=== PATIENT | male | born 1970 | race Two or more races ===

== ENCOUNTER 2019-02-08 14:22 | Outpatient (CLI) | payer BC ==
--- NOTE | 2019-02-08 14:50 | RAD ---
CERVICAL SPINE 3 VIEWS: Date: 02/08/19 HISTORY: Flexion and extension imaging, history of neck surgery, pain. FINDINGS: There is mild degenerative change at the atlantoaxial interspace. There is disc space narrowing with degenerative end plate change and anterior osteophyte formation at C6-7. There is mild C5-6 disc spac e narrowing as well. The C7-T1 level is not optimally assessed on this exam. There is mild anterolist hesis at C4-5 measuring 3.0 mm on flexion and neutral imaging. On extension imaging, this anterolisth esis is no longer visualized. No prevertebral soft tissue swelling. IMPRESSION: Degenerative disc disease at C6-7, and to a lesser degree, C5-6. Mild anterolisthesis at C4-5 on neut ral and flexion imaging. POS: MAG
== END 2019-02-08 14:23 | disposition home or self-care (01) ==
LOC: TBSIIMAG 14:22
PROVIDERS: ATTEND Neurological Surgery
DX: M50.122 Cervical disc disorder at C5-C6 level with radiculopathy (principal); M43.12 Spondylolisthesis, cervical region
CPT/HCPCS: 72040

== ENCOUNTER 2020-02-06 05:44 | Outpatient (CLI) | payer BC, OTHER ==
[2020-02-06 18:02] LABS: Hemoglobin 13.9 g/dL (14.0-18.0); Mean Corpuscular HGB CONC 34.5 g/dL (32.0-36.0); Mean Corpuscular Hemoglobin 31.5 pg (27.0-31.0); Mean Corpuscular Volume 91.4 fL (78.0-98.0); Mean Platelet Volume 8.7 fL (7.4-10.4); Platelet Count 256 thou/uL (130-400); RBC Distribution Width 11.5 % (11.5-14.5); Red Blood Cell (RBC) Count 4.42 mill/uL (4.70-6.10); White Blood Cell (WBC) Count 5.5 thou/uL (4.8-10.8)
[2020-02-07 13:48] LABS: SARS-CoV-2 MS2 Positive; SARS-CoV-2 N Gene Negative; SARS-CoV-2 S Gene Negative; SARS-CoV-2 orf1ab Negative
== END 2020-02-06 05:45 | disposition home or self-care (01) ==
LOC: LABBT 05:44
PROVIDERS: ATTEND Neurological Surgery
DX: Z01.818 Encounter for other preprocedural examination (principal); Z11.59 Encounter for screening for other viral diseases; M48.2 Kissing spine
CPT/HCPCS: 85027; 87635; U0003

== ENCOUNTER 2020-02-09 07:08 | Day surgery (SDC) | payer BC ==
[2020-02-03 11:19] VITALS: BMI 32.5
--- NOTE | 2020-02-06 18:04 | HP ---
ANTICIPATED DATE OF SURGERY: 02/09/2020. PROCEDURE PERFORMED: Removal of inferior T6 and superior T7 spinous process. HISTORY OF PRESENT ILLNESS: Mr. Lazcano is a 49-year-old male with a chief complaint of mid back pain for years. In the past, he has had multilevel laminoforaminotomy in the C-spine, which did not help. MRI was done and noticed kissing spine at T6 and T7 where his spinous process were rubbing. He has had injections that have helped a little bit, but are not helping anymore. He is wondering if surgery could primarily help his pain. MEDICAL HISTORY: Anxiety, arthritis, asthma, allergies seasonal, high cholesterol, chronic pain, depression, headaches, neck surgery 4 to 5 years ago, hospitalizations in February 2016 for neck surgery. FAMILY HISTORY: Father alive with hypertension. Mother alive with hypertension. Children are alive. SOCIAL HISTORY: Former smoker. Alcohol occasional. MEDICATIONS: 1. Fentanyl. 2. Gabapentin. 3. Ranitidine 4. Baclofen. 5. Buspirone 6. Clonidine. 7. Lisinopril. 8. Hydrocodone-Acetaminophen ALLERGIES: BENADRYL AND CODEINE. REVIEW OF SYSTEMS: CONSTITUTIONAL: Denies fevers or chills. ENT: Denies change in vision or hearing. CARDIAC: Denies chest pain, shortness of breath, or diaphoresis. PULMONARY: Denies shortness of breath, cough, or hemoptysis. GI: Denies fecal incontinence, abdominal pain, nausea, vomiting, diarrhea, change in stool formation, or inconsistency. : Denies urinary incontinence, trouble with urination, frequency of urination , or bloody urine. SKIN: Denies skin rash, bruising, bleeding, or skin masses. MUSCULOSKELETAL: As per history of present illness. NEUROLOGIC: As per history of present illness. PSYCHOLOGIC: Denies anxiety, depression, or behavior changes. PHYSICAL EXAMINATION: VITAL SIGNS: Weight 220, height 6 feet. HEENT: Pupils are equal. Extraocular movements are intact. NECK: Normal. Soft and supple. No masses are noted. Range of motion is intact and nonpainful. NEUROLOGIC: Awake, alert, and oriented x3. Memory, attention, fund of knowledge, and language are normal. Cranial nerves normal. Grossly intact. Gait and station are normal. Motor exam, no weakness. Sensory exam, no numbness. IMAGING: MRI, Baastrup sign/kissing spine. PLAN: 1. Removal of the inferior T6 and superior T7 spinous process. 2. Preop testing: CBC, PT/PTT, COVID-19. 3. Anesthesia clearance INFORMED CONSENT: We discussed the indications, risks, benefits, alternatives, and expected results from surgery. The risks discussed included, but were not limited to, bleeding, infection, CSF leak, nerve damage, weakness, incontinence, chronic wound injury, arachnoiditis, paralysis, ventilator dependency, wheelchair dependency, loss of vision, cardiopulmonary complications of anesthesia, or . Long-term complications discussed included, but were not limited to spinal instability and future surgery. He understands the risks and is willing to proceed. Job ID: [id number] [facility]
[2020-02-09] MEDS ORDERED: EPINEPHrine 1 MG/ML AMP ONE (10:16)
[2020-02-09] MEDS ORDERED: Thrombin 5000 UNITS/5 ML VIAL ONE (10:16)
[2020-02-09] MEDS ORDERED: Bupivacaine PF 0.5% 30 ML VIAL ONE (10:16)
[2020-02-09] MEDS ORDERED: Glycopyrrolate 0.2 MG/ML 5 ML SYRINGE ONE (11:01)
[2020-02-09] MEDS ORDERED: Lidocaine 1% PF 5 ML VIAL ONE (11:01)
[2020-02-09] MEDS ORDERED: Dexamethasone 20 MG/5 ML VIAL ONE (11:01)
[2020-02-09] MEDS ORDERED: PROPOFOL 200 MG/20 ML VIAL ONE (11:01)
[2020-02-09] MEDS ORDERED: Ketorolac Tromethamine 30 MG/ML VIAL ONE (11:01)
[2020-02-09] MEDS ORDERED: Ondansetron PF 4 MG/2 ML Vial ONE (11:01)
[2020-02-09] MEDS ORDERED: Rocuronium Bromide 10 MG/ML (10ML VIAL) ONE (11:01)
[2020-02-09] MEDS ORDERED: Fentanyl 100 MCG/2 ML VIAL ONE ×5 (11:10→14:54)
[2020-02-09] MEDS ORDERED: Midazolam HCl 2 mg/2 ml Vial ONE (11:16)
[2020-02-09] MEDS ORDERED: Acetaminophen 325 MG TAB PO PRN (13:26)
[2020-02-09] MEDS ORDERED: Promethazine 25 MG TAB PO PRN (13:26)
[2020-02-09] MEDS ORDERED: Tamsulosin HCl 0.4 MG CAP PO PRN (13:26)
[2020-02-09] MEDS ORDERED: Scopolamine 1.5 mg/72 hour Patch TD PRN (13:26)
[2020-02-09] MEDS ORDERED: Milk Of Magnesia 30 ML UDCUP PO PRN (13:26)
[2020-02-09] MEDS ORDERED: Mag-Al 1200 mg/1200 mg/30 ML UDCUP PO PRN (13:26)
[2020-02-09] MEDS ORDERED: Ondansetron PF 4 MG/2 ML Vial IVP PRN (13:26)
[2020-02-09] MEDS ORDERED: tiZANidine HCl 4 MG TAB PO PRN (13:26)
[2020-02-09] MEDS ORDERED: Sodium Chloride 0.9% 1,000 ML IV SCH (13:30)
[2020-02-09] MEDS ORDERED: Fentanyl 100 MCG/2 ML VIAL SLOW IVP PRN ×2 (13:32)
[2020-02-09] MEDS ORDERED: HYDROcodone/Acetaminophen 5/325 mg Tablet ONE (15:30)
[2020-02-09] MEDS ORDERED: CEFAZOLIN 2 GM in Premix Bag 1 BAG IVPB SCH (16:00)
--- NOTE | 2020-02-09 18:57 | OP ---
DATE OF PROCEDURE: 02/09/2020 CHRONIC CARE NURSE: Bernard Merchant PA-C PREOPERATIVE INDICATION: Treat pain. 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 OPERATIVE PROCEDURE: Removal of T6 and T7 spinous processes (removal of posterior spinal element, thoracic spine, two levels). PREOPERATIVE MEDICATION: Ancef 2 g IV. DRAIN NUMBER: Zero. DRAIN TYPE: None. DESCRIPTION OF PROCEDURE: The patient was brought to the operating room. General endotracheal anesthesia was induced. The patient was carefully positioned on the Tiburcio frame with the appropriate padding for the chest and hips. Using a series of lateral and AP fluoro radiographs, we counted from the sacrum up to T6-7 and down from the occiput to T6-7 four separate times and arrived with the same marking pattern. We planned incision over the T6 and T7 spinous processes. The thoracic skin was sterilely prepped and draped. We opened our incision with a 10 blade knife and we controlled bleeding with bipolar and monopolar cautery. We used monopolar cautery to dissect to the thoracodorsal fascia, which was incised in the midline and reflected off the spinous process of T6 and T7. A self-retaining retractor was placed. A lateral fluoro radiograph confirmed the levels upon which we were operating. We removed the T6 and T7 spinous processes. We ensured that the remaining inferior half of the spinous process did not touch whatsoever. We ensured that there was space above and below and that the pain generator had been removed. We infused local anesthetic in the paraspinal muscles. We waxed the bone edges. We closed the wound in anatomical layers. We applied a sterile dressing. This was a clean case, no contamination. Job ID: [id number]
[2020-02-09] MEDS ORDERED: busPIRone HCl 10 MG TAB PO SCH (21:00)
[2020-02-09] MEDS ORDERED: Amlodipine 10 MG TAB PO SCH (21:00)
[2020-02-09] MEDS ORDERED: Gabapentin 300 MG CAP PO SCH (21:00)
[2020-02-10] MEDS ORDERED: Losartan 25 MG TAB PO SCH (09:00)
== END 2020-02-09 16:55 | disposition home or self-care (01) ==
LOC: SDC 07:08
PROVIDERS: ATTEND Neurological Surgery
PROC: 0PB40ZZ Excision of Thoracic Vertebra, Open Approach (ICD-10-PCS; principal; 2020-02-09)
DX: M48.2 Kissing spine (principal); I10 Essential (primary) hypertension; E78.5 Hyperlipidemia, unspecified; J45.909 Unspecified asthma, uncomplicated; G47.30 Sleep apnea, unspecified; F32.9 Major depressive disorder, single episode, unspecified; F41.9 Anxiety disorder, unspecified; E78.00 Pure hypercholesterolemia, unspecified; G89.29 Other chronic pain; M19.90 Unspecified osteoarthritis, unspecified site; Z86.14 Personal history of Methicillin resistant Staphylococcus aureus infection; Z86.73 Personal history of transient ischemic attack (TIA), and cerebral infarction without residual deficits; Z87.891 Personal history of nicotine dependence; Z79.899 Other long term (current) drug therapy; Z88.5 Allergy status to narcotic agent; Z88.8 Allergy status to other drugs, medicaments and biological substances; Z98.890 Other specified postprocedural states
CPT/HCPCS: 36416; 76000; J0171; J0690; J1100; J1885; J2001; J2250; J2405; J2704; J3010; J3370; J3490; S0020

== ENCOUNTER 2021-12-25 12:24 | Outpatient (CLI) | payer BC ==
[2021-12-25 14:22] LABS: Hemoglobin 13.8 g/dL (13.5-17.5); Mean Corpuscular HGB CONC 34.2 g/dL (32.0-36.0); Mean Corpuscular Hemoglobin 31.1 pg (27.0-33.0); Mean Platelet Volume 11.8 fl (7.4-10.4); Platelet Count 274 10x3/uL (150-450); RBC Distribution Width 12.7 % (11.5-14.5); Red Blood Cell (RBC) Count 4.44 10x6/uL (4.32-5.72); White Blood Cell (WBC) Count 5.9 10x3/uL (3.5-10.5)
[2021-12-25 14:54] LABS: PTT 26.2 sec (22.0-33.0); Prothrombin Time 10.9 sec (9.5-12.1)
[2021-12-26 08:32] LABS: SARS-CoV-2 PCR by NAA Not Detected (NotDetected)
== END 2021-12-25 12:25 | disposition home or self-care (01) ==
LOC: LABBT 12:24
PROVIDERS: ATTEND Neurological Surgery
DX: Z01.812 Encounter for preprocedural laboratory examination (principal); M50.321 Other cervical disc degeneration at C4-C5 level; Z20.822 Contact with and (suspected) exposure to COVID-19
CPT/HCPCS: 85027; 85610; 85730; U0003; U0005

== ENCOUNTER 2021-12-25 15:30 | Inpatient (IN) | payer BC ==
[2021-12-25 12:52] VITALS: BMI 33.5
[2022-01-01] MEDS ORDERED: Thrombin 5000 UNITS/5 ML VIAL ONE (06:19)
[2022-01-01] MEDS ORDERED: Neomycin-Polymyxin 1 ML AMP ONE (06:19)
[2022-01-01] MEDS ORDERED: Ketamine 50 MG/ML (10ML VIAL) ONE (06:34)
[2022-01-01] MEDS ORDERED: Midazolam HCl 2 mg/2 ml Vial ONE (06:34)
[2022-01-01] MEDS ORDERED: Fentanyl 250 MCG/5 ML VIAL ONE (06:34)
[2022-01-01] MEDS ORDERED: HYDROmorphone 0.5 MG/0.5 ML SYRINGE ONE (06:35)
[2022-01-01] MEDS ORDERED: Famotidine/PF 20 mg/2ml Vial ONE (06:35)
[2022-01-01] MEDS ORDERED: Mag-Al 1200 mg/1200 mg/30 ML UDCUP PO PRN (06:42)
[2022-01-01] MEDS ORDERED: Morphine 2 MG/ML VIAL SLOW IVP PRN (06:42)
[2022-01-01] MEDS ORDERED: Ondansetron PF 4 MG/2 ML Vial IVP PRN (06:42)
[2022-01-01] MEDS ORDERED: Cyclobenzaprine 10 MG TAB PO PRN (06:42)
[2022-01-01] MEDS ORDERED: HYDROcodone/Acetaminophen 10/325 mg Tablet PO PRN (06:42)
[2022-01-01] MEDS ORDERED: Promethazine HCl 25 MG/ML VIAL IM PRN (06:42)
[2022-01-01] MEDS ORDERED: Bisacodyl 10 MG SUPP PR PRN (06:42)
[2022-01-01] MEDS ORDERED: Milk Of Magnesia 30 ML UDCUP PO PRN (06:42)
[2022-01-01] MEDS ORDERED: Acetaminophen 325 MG TAB PO PRN (06:42)
[2022-01-01] MEDS ORDERED: HYDROcodone/Acetaminophen 7.5/325 mg Tablet PO PRN (06:42)
[2022-01-01] MEDS ORDERED: traMADol HCl 50 MG TAB PO PRN (06:44)
[2022-01-01] MEDS ORDERED: Sodium Chloride 0.9% 1,000 ML IV SCH (06:45)
[2022-01-01] MEDS ORDERED: Baclofen 10 MG TAB PO PRN (06:46)
[2022-01-01] MEDS ORDERED: Sodium Chloride 0.9% 100 ML ONE ×2 (06:57→14:06)
[2022-01-01] MEDS ORDERED: CEFAZOLIN 2 GM VIAL ONE ×2 (06:57→14:05)
[2022-01-01] MEDS ORDERED: PROPOFOL 200 MG/20 ML VIAL ONE (07:09)
[2022-01-01] MEDS ORDERED: Ondansetron PF 4 MG/2 ML Vial ONE ×2 (07:09→14:13)
[2022-01-01] MEDS ORDERED: ePHEDrine 50 MG/ML VIAL ONE (07:09)
[2022-01-01] MEDS ORDERED: Dexamethasone 20 MG/5 ML VIAL ONE (07:09)
[2022-01-01] MEDS ORDERED: Rocuronium Bromide 10 MG/ML (10ML VIAL) ONE (07:09)
[2022-01-01] MEDS ORDERED: Glycopyrrolate 0.2 MG/ML 5 ML SYRINGE ONE (07:09)
[2022-01-01] MEDS ORDERED: Vecuronium 10 MG VIAL ONE (07:09)
[2022-01-01] MEDS ORDERED: Succinylcholine 200 MG/10 ml SYRINGE FS ONE (07:09)
[2022-01-01] MEDS ORDERED: Lidocaine 1% PF 5 ML VIAL ONE (07:09)
[2022-01-01] MEDS ORDERED: PHENYLEPHRINE-NS 100 MCG/ML 10 ML SYRINGE ONE (07:09)
[2022-01-01] MEDS ORDERED: Phenylephrine 10 MG/ML VIAL ONE (08:38)
[2022-01-01] MEDS ORDERED: Amlodipine 10 MG TAB PO SCH (09:00)
[2022-01-01] MEDS ORDERED: Pregabalin 50 MG CAP PO SCH (09:00)
[2022-01-01] MEDS ORDERED: CEFAZOLIN 2 GM in Sodium Chloride 0.9% 100 ML IVPB SCH (14:00)
[2022-01-01] MEDS ORDERED: HYDROcodone/Acetaminophen 10/325 mg Tablet ONE (14:05)
[2022-01-01] MEDS ORDERED: Tamsulosin HCl 0.4 MG CAP ONE (17:08)
[2022-01-01] MEDS ORDERED: busPIRone HCl 10 MG TAB PO SCH (21:00)
[2022-01-01] MEDS ORDERED: Losartan 25 MG TAB PO SCH (21:00)
== END 2022-01-01 17:57 | disposition home or self-care (01) | DRG 473 ==
LOC: SURG A 01-01 05:50
PROVIDERS: ADMIT Neurological Surgery; ATTEND Neurological Surgery
PROC: 0RG20A0 Fusion of 2 or more Cervical Vertebral Joints with Interbody Fusion Device, Anterior Approach, Anterior Column, Open Approach (ICD-10-PCS; principal; 2022-01-01)
PROC: 0RB30ZZ Excision of Cervical Vertebral Disc, Open Approach (ICD-10-PCS; 2022-01-01)
DX: M50.11 Cervical disc disorder with radiculopathy, high cervical region (principal); M50.121 Cervical disc disorder at C4-C5 level with radiculopathy; M43.12 Spondylolisthesis, cervical region; Z20.822 Contact with and (suspected) exposure to COVID-19; F41.9 Anxiety disorder, unspecified; J45.909 Unspecified asthma, uncomplicated; E78.5 Hyperlipidemia, unspecified; G89.29 Other chronic pain; F32.A Depression, unspecified; I10 Essential (primary) hypertension; R51.9 Headache, unspecified; M25.78 Osteophyte, vertebrae; Z79.899 Other long term (current) drug therapy; Z87.891 Personal history of nicotine dependence; Z88.5 Allergy status to narcotic agent; Z88.8 Allergy status to other drugs, medicaments and biological substances
CPT/HCPCS: 76000; C1713; C1776; J1100; J1170; J2250; J2370; J2405; J2704; J3010; J3490; S0028